=== PATIENT | male | born 1980 | race Caucasian/White ===

== ENCOUNTER 2023-02-04 17:07 | Emergency (ER) | payer OTHER, SELFPAY ==
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
[2023-02-04 17:26] VITALS: BP 134/92; PULSE 104; RESP 16; TEMP 36.7; O2SAT 99; BMI 30.3
[2023-02-04 17:40] LABS: MANUAL DIFF FLAG NO
[2023-02-04 17:43] LABS: Basophils Percent Auto 0.6 % (0-2); Eosinophils Percent Auto 0.6 % (0-4); Hemoglobin 16.3 g/dl (14.0-18.0); Imm Gran Abs Auto 0.03 X10*3/uL (0.00-0.03); Imm Gran Pct Auto 0.4 % (0.0-0.4); Lymphocytes Absolute Auto 2.1 X10*3/uL (1.2-4.9); Lymphocytes Percent Auto 28.7 % (20-40); Mean Corpuscular HGB Conc 36.2 g/dl (31.0-36.0); Mean Corpuscular Hemoglobin 32.1 pg (27.0-33.0); Mean Corpuscular Volume 88.6 fL (80.0-98.0); Monocytes Absolute Auto 0.4 X10*3/uL (0.1-1.2); Monocytes Percent Auto 5.3 % (2-11); Neutrophils Absolute Auto 4.6 x10*3/uL (2.0-8.3); Neutrophils Percent Auto 64.4 % (45-73); Platelet Count 237 X10*3/uL (160-400); Red Blood Count 5.08 X10*6/uL (4.60-5.80); Red Cell Distribution Width 10.7 % (11.0-16.0); White Blood Count 7.2 X10*3/uL (4.8-10.8)
[2023-02-04 17:58] LABS: Alanine Aminotransferase 17 U/L (0-40); Albumin Level 4.6 g/dL (3.5-5.0); Alkaline Phosphatase 53 U/L (39-117); Anion Gap 15 (12-20); Aspartate Amino Transferase 18 U/L (5-37); Bilirubin Total 0.6 mg/dL (0.0-1.0); Blood Urea Nitrogen 12 mg/dL (9-16); Calcium 9.8 mg/dL (8.4-10.2); Carbon Dioxide 25 mmol/L (22-29); Chloride 106 mmol/L (96-108); Creatinine Clr Calc Pharmacy 101.9; Estimated Glomerular Filt Rate > 60; Glucose Random 111 mg/dL (60-115); Magnesium 2.2 mg/dL (1.6-2.6); Potassium 3.5 mmol/L (3.3-5.1); Sodium 142 mmol/L (135-145); Total Protein 7.3 g/dL (6.5-8.0)
[2023-02-04] MEDS: Diphth,Pertus(ACell),Tet Adult 0.5 ML SYRINGE IM (19:53)
[2023-02-05 03:16] LABS: HBS Num1 9.99 mIU/mL (0-7.99); HBc Num1 0.07 S/CO (0.00-0.79); HBsAGNum1 0.28 S/CO (0.00-0.99); HIV AB/AG Nonreactive (Nonreactive); HIV Num 1 0.06 S/CO (0.00-0.99); Hepatitis A Antibody IgM 0.17 Index (0-0.79); Hepatitis B Core Antibody Nonreactive (Nonreactive); Hepatitis B Surface Antigen Negative (Negative); ~HepC Num1 0.04 S/CO (0.00-0.79); ~Hepatitis A Antibody IgM Nonreactive (Nonreactive); ~Hepatitis C Antibody Nonreactive (Nonreactive)
[2023-02-05 03:59] LABS: HBS Num2 9.45 mIU/mL (0-7.99); HBS Num3 9.66 mIU/mL (0-7.99)
[2023-02-05 04:00] LABS: ~Hepatitis B Surface Antibody GRAYZONE (Nonreactive)
== END 2023-02-04 20:09 | disposition home or self-care (01) ==
PROVIDERS: Physician Assistant; Emergency Provider Emergency Medicine Emergency Medical Services; PCP Internal Medicine
DX: S60.410A Abrasion of right index finger, initial encounter (principal); Y35.811A Legal intervention involving manhandling, law enforcement official injured, initial encounter; Z77.21 Contact with and (suspected) exposure to potentially hazardous body fluids; Y93.89 Activity, other specified; Y92.9 Unspecified place or not applicable; Y99.0 Civilian activity done for income or pay
CPT/HCPCS: 36415; 80053; 83735; 85025; 86704; 86706; 86709; 86803; 87340; 87389; 90471; 90715; 99283; 99284

== ENCOUNTER → 2023-03-05 09:48 | Outpatient (BNVA) | payer OTHER, SELFPAY | PROVIDERS: PCP Internal Medicine; Visit Provider Internal Medicine | DX: L29.8 Other pruritus (principal); Y35.891A Legal intervention involving other specified means, law enforcement official injured, initial encounter | CPT/HCPCS: 99203 ==

== ENCOUNTER → 2023-03-07 09:50 | Outpatient (BNVA) | payer OTHER, SELFPAY | PROVIDERS: PCP Internal Medicine; Visit Provider Internal Medicine | DX: R20.8 Other disturbances of skin sensation (principal); S60.410D Abrasion of right index finger, subsequent encounter; Y35.811D Legal intervention involving manhandling, law enforcement official injured, subsequent encounter; Z77.21 Contact with and (suspected) exposure to potentially hazardous body fluids | CPT/HCPCS: 99213 ==

== ENCOUNTER → 2023-03-14 09:58 | Outpatient (BNVA) | payer OTHER, SELFPAY | PROVIDERS: PCP Internal Medicine; Visit Provider Internal Medicine | DX: S60.410D Abrasion of right index finger, subsequent encounter (principal); Y35.891D Legal intervention involving other specified means, law enforcement official injured, subsequent encounter; R20.8 Other disturbances of skin sensation; Z77.21 Contact with and (suspected) exposure to potentially hazardous body fluids | CPT/HCPCS: 99213 ==

== ENCOUNTER → 2023-04-04 09:10 | Outpatient (BNVA) | payer OTHER, SELFPAY | PROVIDERS: PCP Internal Medicine; Visit Provider Internal Medicine | DX: R20.8 Other disturbances of skin sensation (principal); S61.210D Laceration without foreign body of right index finger without damage to nail, subsequent encounter; Y35.811D Legal intervention involving manhandling, law enforcement official injured, subsequent encounter; Z77.21 Contact with and (suspected) exposure to potentially hazardous body fluids | CPT/HCPCS: 99213 ==

== ENCOUNTER → 2023-05-19 08:37 | Outpatient (BNVA) | payer OTHER, SELFPAY | PROVIDERS: PCP Internal Medicine; Visit Provider Internal Medicine | DX: S60.410D Abrasion of right index finger, subsequent encounter (principal); Y35.811D Legal intervention involving manhandling, law enforcement official injured, subsequent encounter; Z77.21 Contact with and (suspected) exposure to potentially hazardous body fluids; R20.8 Other disturbances of skin sensation | CPT/HCPCS: 99213 ==

== ENCOUNTER → 2023-05-26 10:21 | Outpatient (BNVA) | payer OTHER, SELFPAY | PROVIDERS: PCP Internal Medicine; Visit Provider Internal Medicine | DX: T14.8XXD Other injury of unspecified body region, subsequent encounter (principal); Y35.81 Legal intervention involving manhandling; T88 Other complications of surgical and medical care, not elsewhere classified; T50.Z Poisoning by, adverse effect of and underdosing of other vaccines and biological substances | CPT/HCPCS: 99213 ==